=== PATIENT | female | born 1955 | race African-American/Black ===

== ENCOUNTER → 2017-02-04 | Outpatient (CLI) | payer BC ==
[2015-02-07 08:06] VITALS: BP 123/67
[~2017-02-04] MED LIST: ASPI-482 PO; ATOR40TA59 PO; CANA100T PO; CHOL100017 PO; DILT240C32 PO; EZET10TA18 PO; METF100010 PO; OMEG1CAP27 PO; SITA100T PO; VALS1TAB14 PO
--- NOTE | 2017-02-04 18:07 | KCIC ---
Bilateral digital screening mammograms: Reason for examination: Routine screening. Comparison is made to previous studies dated 09/23/2014 and 05/16/2012. Interpretation was made with the benefit of CAD. The skin and nipples show no abnormalities. No abnormal axillary lymph nodes are seen. The breast parenchyma shows scattered fibroglandular density. (Breast density: Category B.) There are no dominant masses, suspicious calcifications or architectural distortions. Impression: No evidence of malignancy. Recommend routine screening. BI-RADS Category 1: Negative. "Our facility is accredited by the [employer] Mammography [employer]." This patient's information has been entered into a reminder system for the patient to be notified with the results of her examination and a target date for the next mammogram. Electronically signed by: Gia Briones MD (02/04/2017 6:04 PM) [id number]
== END | disposition home or self-care (01) ==
LOC: KCIC MAMMO 09:29
PROVIDERS: ATTEND Family Medicine
DX: Z12.31 Encounter for screening mammogram for malignant neoplasm of breast (principal)
CPT/HCPCS: G0202; 77067

== ENCOUNTER → 2018-12-08 | Outpatient (CLI) | payer BC ==
[2015-02-07 08:06] VITALS: BP 123/67
[~2018-12-08] MED LIST changes: -EZET10TA18 PO; +EZET10TA20 PO
--- NOTE | 2018-12-08 16:51 | KCIC ---
EXAM: Abdomen and pelvis CT without intravenous contrast. HISTORY: Right flank pain. Hematuria. TECHNIQUE: Computed tomographic images of the abdomen and pelvis were obtained without contrast. Multiplanar reformatting was performed. *One or more of the following individualized dose reduction techniques were utilized for this examination: 1. Automated exposure control. 2. Adjustment of the mA and/or kV according to patient size. 3. Use of iterative reconstruction technique. COMPARISON: 09/12/2015. FINDINGS: Evaluation of the lower thorax is unremarkable. No hepatic lesion is seen on this noncontrast exam. The gallbladder, pancreas, spleen and adrenal glands are unremarkable. The stomach is unremarkable. There is no evidence of nephrolithiasis or hydronephrosis. There is no appendicitis. There is no bowel obstruction. The bladder is unremarkable. No adnexal mass is seen. There are prominent bilateral inguinal lymph nodes, likely physiologic or reactive. There is degenerative change involving the spine, primarily at T12-L1 and L5-S1. There is grade 1 anterolisthesis of L4 on L5. IMPRESSION: 1. No evidence of nephrolithiasis or hydronephrosis. 2. No acute abdominal or pelvic finding. Electronically signed by: Lamar Hodge MD (12/08/2018 4:48 PM) [id number]
== END | disposition home or self-care (01) ==
LOC: KCIC CT 09:07
PROVIDERS: ATTEND Family Medicine
DX: M47.897 Other spondylosis, lumbosacral region (principal); R31.9 Hematuria, unspecified; M43.16 Spondylolisthesis, lumbar region
CPT/HCPCS: 74176

== ENCOUNTER → 2020-02-15 | Outpatient (CLI) | payer MEDICARE ==
[2015-02-07 08:06] VITALS: BP 123/67
--- NOTE | 2020-02-15 13:33 | RAD ---
Examination: MG DIGITAL BILAT DIAGNOSTIC MAMMO WITH KADE History: Reason: BREAST PAIN Comparison/Correlation: 02/04/2017, 09/23/2014, 05/16/2012 Technique: MLO and CC digital tomosynthesis (3D) images obtained. Radiologist reviewed these images on dedicated workstation. Findings: Breast Tissue Density B : There are scattered areas of fibroglandular density. There are no dominant masses, suspicious microcalcifications, or architectural distortion. IMPRESSION: No mammographic evidence of malignancy. Recommend routine screening. BI-RADS category 1: Negative. The images were reviewed with computer-aided detection. Patient information is entered into reminder system with a target due date for the next screening [facility]. Mammography is the most sensitive method for finding small breast cancers, but it does not detect the m all and is not a substitute for careful clinical examination. A negative mammogram does not negate a clinically suspicious finding and should not result in delay in biopsying a clinically suspicious a bnormality. "Our facility is accredited by the [employer] Mammography Program." Electronically signed by: Karthik Valdivia MD (02/15/2020 10:18 AM) [id number]
== END ==
LOC: MAMMO 09:14
PROVIDERS: ATTEND Family Medicine
DX: N64.4 Mastodynia (principal)
CPT/HCPCS: 77066; G0279; 77062

== ENCOUNTER → 2021-05-08 | Outpatient (CLI) | payer MEDICARE ==
[2015-02-07 08:06] VITALS: BP 123/67
[~2021-05-08] MED LIST changes: +IOHEXOL 240 MG/ML 50ML VIAL. PO ONE
--- NOTE | 2021-05-08 16:23 | RAD ---
EXAM: CT Abdomen and Pelvis with IV contrast CLINICAL HISTORY: Reason: DIVERTICULITIS, abdominal pain COMPARISON: none TECHNIQUE: Helical CT of the abdomen and pelvis was performed following the administration of intrave nous contrast. Axial, coronal and sagittal reformatted images were generated. PQRS compliance statement - One or more of the following individualized dose reduction techniques wer e utilized for this study: 1. Automated exposure control 2. Adjustment of the mA and/or kV according to patient size 3. Use of iterative reconstruction technique FINDINGS: Lower Chest: Lung bases are clear. Small hiatal hernia. Abdomen and Pelvis: Liver, spleen, left adrenal gland and pancreas are unremarkable. High density material within the gal lbladder likely sludge. 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 No focal renal lesion. No hydronephrosis. No hydroureter. Bladder is unremarkable. Appendix is normal. Moderate colonic stool content is seen. No small or large bowel dilatation. No cynthia wel obstruction. Aorta is normal in caliber with intermittent atherosclerotic calcifications. No abdominal or pelvic lymphadenopathy. No abdominal pelvic ascites. Trace fat-containing periumbilic al hernia. Bones: Degenerative changes of the spine are seen. IMPRESSION: 1. No evidence for acute diverticulitis. 2. Moderate colonic stool content. 3. No bowel obstruction. Electronically signed by: Jakob Elizabeth MD (05/08/2021 4:20 PM) [id number]
== END ==
LOC: CT 13:13
PROVIDERS: ATTEND Nurse Practitioner
DX: K44.9 Diaphragmatic hernia without obstruction or gangrene (principal); E27.8 Other specified disorders of adrenal gland; Z87.19 Personal history of other diseases of the digestive system
CPT/HCPCS: 74176; Q9966